=== PATIENT | female | born 1985 | race Caucasian/White ===

== ENCOUNTER 2016-10-15 22:58 | Emergency (ER) | payer OTHER ==
[2016-10-15 23:34] VITALS: TEMP 98.2
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
[2016-10-15] MEDS ORDERED: HYDROCODONE/APAP 5/325 TAB PO ONE (23:58)
[2016-10-16 00:35] VITALS: BP 140/82; PULSE 100; RESP 18; O2SAT 95
== END 2016-10-16 00:32 | disposition home or self-care (01) ==
DX: S93.401A Sprain of unspecified ligament of right ankle, initial encounter (principal); V49.49XA Driver injured in collision with other motor vehicles in traffic accident, initial encounter; Y92.410 Unspecified street and highway as the place of occurrence of the external cause
CPT/HCPCS: L4386

== ENCOUNTER → 2016-10-21 | Outpatient (CLI) | payer OTHER | LOC: BMCIMAGING 09:04 | PROVIDERS: ATTEND Podiatrist Foot & Ankle Surgery | DX: M79.671 Pain in right foot (principal) ==

== ENCOUNTER → 2016-11-11 | Outpatient (CLI) | payer OTHER | LOC: BMCIMAGING 08:59 | PROVIDERS: ATTEND Podiatrist Foot & Ankle Surgery | DX: M25.571 Pain in right ankle and joints of right foot (principal) ==

== ENCOUNTER 2017-07-20 02:05 | Emergency (ER) | payer OTHER ==
[2017-07-20 02:12] VITALS: RESP 20; TEMP 98.6
[2017-07-20] MEDS ORDERED: NS 1,000 ML IV ONE (02:41)
--- NOTE | 2017-07-20 02:42 | EDPHY ---
H & P Stated Complaint: passed out at work, n/V/D yesterday Time Seen by Provider: 07/20/17 02:20 HPI/ROS: Chief Complaint: Syncope HPI: 32-year-old woman had a syncopal event while at work this morning. Patient states that 2 days ago she had 12 hr of nausea vomiting and diarrhea. She did not go to work at night. Yesterday during the day she was feeling better was able to eat and drink. She went to work this morning. She was feeling fine, she was caring some boxes. She started feeling lightheaded and her vision became dark. Coworkers found her passed out on the floor. She is complaining some mild tightness in her chest. No palpitations. No longer having any nausea or vomiting. No shortness of breath. No leg pain or swelling. Does not have a history of syncope in the past. Does have a history of mitral valve prolapse and tachycardia. ROS: 10 point Review of Systems is negative except as noted in the HPI. PMH: Mitral valve prolapse, migraine headaches Social History: Positive smoking, occasional alcohol, occasional CBD Family History: No family history of AL or sudden cardiac Physical Exam: Gen: Awake, Alert, No Distress HEENT: Nose: no rhinorrhea Eyes: PERRLA, EOMI Mouth: Dry mucous membranes Neck: Supple, no JVD Chest: nontender, lungs clear to auscultation Heart: S1, S2 normal, no murmur Abd: Soft, non-tender, no guarding Back: no CVA tenderness, no midline tenderness Ext: no edema, non-tender Skin: no rash Neuro: CN II-XII intact, Sensation grossly intact, Strength 5/5 in bilateral upper and lower extremities - Personal History LMP (Females 10-55): IUD In Place Current Tetanus Diphtheria and Acellular Pertussis (TDAP): Yes - Medical/Surgical History Hx Asthma: No Hx Chronic Respiratory Disease: No Hx Diabetes: No Hx Cardiac Disease: Yes Hx Renal Disease: No Hx Cirrhosis: No Hx Alcoholism: No Hx HIV/AIDS: No Hx Splenectomy or Spleen Trauma: No Other PMH: mitral valve prolapse, sinus tachycardia, atrial tachycardia - Social History Smoking Status: Light smoker Constitutional: Initial Vital Signs Temperature (C) 37 C 07/20/17 02:09 Heart Rate 107 H 07/20/17 02:09 Respiratory Rate 20 07/20/17 02:09 Blood Pressure 126/80 H 07/20/17 02:09 O2 Sat (%) 100 07/20/17 02:09 O2 Delivery Mode Room Air Allergies/Adverse Reactions: No Known Allergies Allergy (Unverified 07/20/17 02:09) Home Medications: Medication Instructions Recorded NK [No Known Home Meds] 07/20/17 Medical Decision Making - Diagnostics EKG Interpretation: ECG time 2:44 a.m., sinus rhythm with a rate of 80, normal axis, normal intervals, no acute ST or T-wave changes. Impression: Normal ECG. ED Course/Re-evaluation: 32-year-old woman with a syncopal episode likely related to her dehydration from her gastroenteritis. Her ECG is normal. Laboratory evaluations are negative. She is not . She has been given a L of fluid. She is feeling improved. Will discharge with follow-up with primary care physician, return for worsening. - Data Points Laboratory Results: Laboratory Results 07/20/17 02:30 07/20/17 02:30 07/20/17 07/20/17 07/20/17 02:30 02:30 02:30 WBC 10.89 10^3/uL H 10^3/uL (3.80-9.50) RBC 5.19 10^6/uL 10^6/uL (4.18-5.33) Hgb 15.6 g/dL g/dL (12.6-16.3) Hct 46.4 % % (38.0-47.0) MCV 89.4 fL fL (81.5-99.8) MCH 30.1 pg pg (27.9-34.1) MCHC 33.6 g/dL g/dL (32.4-36.7) RDW 13.4 % % (11.5-15.2) Plt Count 201 10^3/uL 10^3/uL (150-400) MPV 9.9 fL fL (8.7-11.7) Neut % (Auto) 63.3 % % (39.3-74.2) Lymph % (Auto) 23.2 % % (15.0-45.0) [place] % (Auto) 8.7 % % (4.5-13.0) Eos % (Auto) 3.6 % % (0.6-7.6) Baso % (Auto) 0.6 % % (0.3-1.7) Nucleat RBC Rel Count 0.0 % % (0.0-0.2) Absolute Neuts (auto) 6.90 10^3/uL H 10^3/uL (1.70-6.50) Absolute Lymphs (auto) 2.53 10^3/uL 10^3/uL (1.00-3.00) Absolute Monos (auto) 0.95 10^3/uL H 10^3/uL (0.30-0.80) Absolute Eos (auto) 0.39 10^3/uL 10^3/uL (0.03-0.40) Absolute Basos (auto) 0.06 10^3/uL 10^3/uL (0.02-0.10) Absolute Nucleated RBC 0.00 10^3/uL 10^3/uL (0-0.01) Immature Gran % 0.6 % % (0.0-1.1) Immature Gran # 0.06 10^3/uL 10^3/uL (0.00-0.10) Sodium 143 mEq/L mEq/L (135-145) Potassium 3.8 mEq/L mEq/L (3.5-5.2) Chloride 107 mEq/L mEq/L (97-110) Carbon Dioxide 19 mEq/l L mEq/l (22-31) Anion Gap 17 mEq/L H mEq/L (8-16) BUN 18 mg/dL mg/dL (7-23) Creatinine 0.7 mg/dL mg/dL (0.6-1.0) Estimated GFR > 60 Glucose 85 mg/dL mg/dL (70-100) Calcium 9.2 mg/dL mg/dL (8.5-10.4) Beta HCG, Qual NEGATIVE Medications Given: Discontinued Medications Sodium Chloride (Ns) 1,000 mls @ 0 mls/hr IV ONCE ONE; Wide Open PRN Reason: Protocol Stop: 07/20/17 02:42 Last Admin: 07/20/17 02:52 Dose: 1,000 mls Departure - Departure Disposition: Home, Routine, Self-Care Clinical Impression: Dehydration, Syncope Condition: Good Instructions: Dehydration (ED), Syncope (ED) Additional Instructions: Make sure to drink plenty of fluids. Follow up with primary care physician in 2-3 days for further evaluation. Return to the emergency department for further fainting, lightheadedness, fevers , chills, chest pain, nausea, vomiting, or any other concerns. Referrals: Satish Juarez MD [Medical Doctor] - As per Instructions
[2017-07-20 02:45] LABS: PLATELET COUNT 201 10^3/uL (150-400)
--- NOTE | 2017-07-20 02:46 | CPEKG ---
Heart Rate: 80 RR Interval: 750 P-R Interval: 152 QRSD Interval: 86 QT Interval: 364 QTC Interval: 420 P [place]: -5 QRS [place]: 62 T Wave [place]: 37 EKG Severity - NORMAL ECG - EKG Impression: SINUS RHYTHM Electronically Signed By: Jatinder Hay 20-Jul-2017 03:03:05
[2017-07-20] MEDS ORDERED: ONDANSETRON 4 MG/2 ML VIAL ONE (03:02)
[2017-07-20] MEDS ORDERED: ONDANSETRON 4 MG/2 ML VIAL IVP ONE (03:02)
[2017-07-20 03:43] VITALS: BP 107/73; PULSE 78; O2SAT 99
== END 2017-07-20 03:47 | disposition home or self-care (01) ==
DX: R55 Syncope and collapse (principal); E86.0 Dehydration; E86.9 Volume depletion, unspecified; F17.200 Nicotine dependence, unspecified, uncomplicated
CPT/HCPCS: 96374; J2405

== ENCOUNTER → 2017-10-31 | Outpatient (CLI) | payer BC, OTHER | LOC: BMCIMAGING 11:53 | PROVIDERS: ATTEND Family Medicine | DX: J98.4 Other disorders of lung (principal) ==

== ENCOUNTER 2018-03-01 08:39 | Observation (INO) | payer OTHER ==
--- NOTE | 2018-03-01 09:10 | EDPHY ---
General - History Smoking Status: Former smoker Time Seen by Provider: 03/01/18 09:00 Narrative: PHYSICIAN DOCUMENTATION: The patient was evaluated and managed by the Physician Sole Skiver and myself. I have reviewed the chart and agree with the findings and plan of care as documented. In addition, I examined the patient myself at 1010. History confirmed as cough and wheezing. Physical findings as follows: Bilateral expiratory wheezing, prolonged expiratory phase, symmetric lung sounds. Patient has most likely URI with bronchitis and bronchospasm. I think pulmonary embolism would be less likely. Plan for steroids which are discussed and consented, multiple nebulizer treatments, disposition depending on clinical improvement. Discussed with Abhi Huitron [id number]. I am the secondary supervising physician. (Homero Rodriguez) CHIEF COMPLAINT: Cough, weakness, shortness of breath HISTORY OF PRESENT ILLNESS: Patient presents with complaints of cough, weakness, fatigue, shortness of breath and vomiting. She said the cough started 4 days ago. It was mild to moderate. Over the past 2 days however, it has become significantly worse. She reports frequent episodes of posttussive emesis. He has a productive cough. She has been subjectively febrile. She reports feeling very fatigued and weak. She has had some nausea. She has no chest pain at rest. No pain with exertion. She has no abdominal pain. No neck pain or stiffness. No headache. She does have a very sore throat with some sinus congestion. No rash. She went to urgent care prior to arrival, but they sent her here after breathing treatment because her oxygenation was 88% on room air. No other associated complaints or modifying factors. REVIEW OF SYSTEMS: 10 systems were reviewed and negative with the exception of the elements mentioned in the history of present illness. PCP: None. SPECIALISTS: Dr. Jules PAST MEDICAL HISTORY: Mitral valve prolapse, sinus tachycardia, atrial tachycardia PAST SURGICAL HISTORY: Bilateral salpingo acted me January 20, 2018 SOCIAL HISTORY: "Occasional"smoker. Lives independently. FAMILY HISTORY: Noncontributory EXAMINATION: General Appearance: Alert, no distress. Ill appearing but nontoxic. Conversing in full sentences. Head: normocephalic, atraumatic Eyes: Pupils equal and round, no conjunctival pallor or injection ENT, Mouth: Mucous membranes moist. Postnasal drip. Airway patent Neck: Normal inspection, supple, non-tender. No meningismus or rigidity. Respiratory: Harsh, sonorous rhonchi throughout. Expiratory wheezing throughout. Mild consolidation. No retractions or distress. Cardiovascular: Tachycardic rate. Regular rhythm. Grade 1 systolic murmur. Gastrointestinal: Abdomen is soft and nontender no tympany rigidity Back: non-tender, no bony abnormalities Neurological: A&O, nonfocal, normal gait Skin: Warm and dry, no rash Extremities: Nontender, no pedal edema Psychiatric: Mood and affect normal DIFFERENTIAL DIAGNOSES: Including but not limited to sepsis, community-acquired pneumonia, bronchitis, influenza, PE, pleural effusion MDM: 9:10 a.m. Cough with body aches, weakness, post-tussive emesis and shortness of breath over the past 4 days. She denies any chest pain at rest or with exertion. Her examination suggest likely pneumonia versus bronchitis. She is tachycardic, respiratory rate is 20, she was hypoxemic and she does have a mildly elevated temperature but not quite febrile. Due to this I discussed with Dr. Homero Rodriguez immediately, and we will obtain blood cultures and lactic acid 9:50 a.m. Chest x-ray has been reviewed with Dr. Rodriguez. No evidence of pneumonia as read by us. I have ordered D-dimer as she is tachycardic with surgery early January. I feel that PE is unlikely but we will obtain D-dimer. Continue with nebulizer treatments. Laboratory studies thus far pending with a negative lactic acid. 10:15 a.m. X-ray unremarkable for pneumonia. D-dimer is negative. Dr. Rodriguez has evaluated the patient and agrees with is a likelihood of bronchitis. We will as IV steroid and continue bronchodilator treatments and re-evaluate. 11:05 a.m. Patient re-evaluated. She remains hypoxic on room air, 86-88%. She is still coughing forcefully. Her heart rate remains sinus tachycardia. She has no improvement in her symptoms despite multiple medications. I do feel she will need admission to the hospital. 11:[address] Rodriguez has discussed the case with Elvia Moe NP. Patient be admitted to the hospital for further care patient in stable condition. SUPERVISION: Patient was independently examined, but I discussed the case with my secondary supervising physician Dr. Rodriguez CONSULTATION: Admission (Favio Lucas) - Diagnostics Imaging Results: Imaging Impressions Chest X-Ray 03/01/18 09:12 Impression: Probable bronchitis/airways disease without evidence of pneumonia. - Objective Vital Signs: Initial Vital Signs Temperature (C) 99.7 F 03/01/18 08:41 Heart Rate 126 H 03/01/18 08:41 Respiratory Rate 18 03/01/18 08:41 Blood Pressure 103/81 H 03/01/18 08:41 O2 Sat (%) 89 L 03/01/18 08:41 O2 Delivery Mode Nasal Cannula O2 (L/minute) 2 Allergies/Adverse Reactions: No Known Allergies Allergy (Verified 03/01/18 11:39) Home Medications: Medication Instructions Recorded Albuterol [Proventil Inhaler HFA 1 - 2 puffs IH DAILY PRN 03/01/18 (*)] Albuterol [Proventil Neb] 3 ml IH QID PRN 03/01/18 Laboratory Results: Laboratory Results 03/01/18 09:40 03/01/18 09:40 03/01/18 03/01/18 03/01/18 09:40 09:40 09:40 WBC 14.63 10^3/uL H 10^3/uL (3.80-9.50) RBC 5.13 10^6/uL 10^6/uL (4.18-5.33) Hgb 15.3 g/dL g/dL (12.6-16.3) Hct 45.4 % % (38.0-47.0) MCV 88.5 fL fL (81.5-99.8) MCH 29.8 pg pg (27.9-34.1) MCHC 33.7 g/dL g/dL (32.4-36.7) RDW 13.1 % % (11.5-15.2) Plt Count 242 10^3/uL 10^3/uL (150-400) MPV 10.5 fL fL (8.7-11.7) Neut % (Auto) 79.4 % H % (39.3-74.2) Lymph % (Auto) 12.0 % L % (15.0-45.0) [place] % (Auto) 7.2 % % (4.5-13.0) Eos % (Auto) 0.4 % L % (0.6-7.6) Baso % (Auto) 0.5 % % (0.3-1.7) Nucleat RBC Rel Count 0.0 % % (0.0-0.2) Absolute Neuts (auto) 11.61 10^3/uL H 10^3/uL (1.70-6.50) Absolute Lymphs (auto) 1.75 10^3/uL 10^3/uL (1.00-3.00) Absolute Monos (auto) 1.06 10^3/uL H 10^3/uL (0.30-0.80) Absolute Eos (auto) 0.06 10^3/uL 10^3/uL (0.03-0.40) Absolute Basos (auto) 0.08 10^3/uL 10^3/uL (0.02-0.10) Absolute Nucleated RBC 0.00 10^3/uL 10^3/uL (0-0.01) Immature Gran % 0.5 % % (0.0-1.1) Immature Gran # 0.07 10^3/uL 10^3/uL (0.00-0.10) PT 12.9 SEC SEC (12.0-15.0) INR 0.95 (0.83-1.16) APTT 29.2 SEC SEC (23.0-38.0) D-Dimer < 0.27 ug/mLFEU ug/mLFEU (0.00-0.50) VBG Lactic Acid Sodium Potassium Chloride Carbon Dioxide Anion Gap BUN Creatinine Estimated GFR Glucose Calcium Total Bilirubin Conjugated Bilirubin Unconjugated Bilirubin AST ALT Alkaline Phosphatase Total Protein Albumin Lipase Specimen Hemolysis Nasal Influenza A PCR NEGATIVE FOR FLU A (NEGATIVE) Nasal Influenza B PCR NEGATIVE FOR FLU B (NEGATIVE) 03/01/18 03/01/18 09:40 09:40 WBC RBC Hgb Hct MCV MCH MCHC RDW Plt Count MPV Neut % (Auto) Lymph % (Auto) [place] % (Auto) Eos % (Auto) Baso % (Auto) Nucleat RBC Rel Count Absolute Neuts (auto) Absolute Lymphs (auto) Absolute Monos (auto) Absolute Eos (auto) Absolute Basos (auto) Absolute Nucleated RBC Immature Gran % Immature Gran # PT INR APTT D-Dimer VBG Lactic Acid 1.7 mmol/L mmol/L (0.7-2.1) Sodium 141 mEq/L mEq/L (135-145) Potassium 4.7 mEq/L mEq/L (3.3-5.0) Chloride 106 mEq/L mEq/L (97-110) Carbon Dioxide 24 mEq/l mEq/l (22-31) Anion Gap 11 mEq/L mEq/L (8-16) BUN 10 mg/dL mg/dL (7-23) Creatinine 0.5 mg/dL L mg/dL (0.6-1.0) Estimated GFR > 60 Glucose 102 mg/dL H mg/dL (70-100) Calcium 9.5 mg/dL mg/dL (8.5-10.4) Total Bilirubin 0.7 mg/dL mg/dL (0.1-1.4) Conjugated Bilirubin 0.2 mg/dL mg/dL (0.0-0.5) Unconjugated Bilirubin 0.5 mg/dL mg/dL (0.0-1.1) AST 41 IU/L IU/L (14-46) ALT 40 IU/L IU/L (9-52) Alkaline Phosphatase 72 IU/L IU/L (38-126) Total Protein 7.7 g/dL g/dL (6.3-8.2) Albumin 4.5 g/dL g/dL (3.5-5.0) Lipase 48 IU/L IU/L (23-300) Specimen Hemolysis 109 Nasal Influenza A PCR Nasal Influenza B PCR Medications Given: Albuterol/Ipratropium (Duoneb) 3 ml IH Q6HRS LINDA Stop: 08/28/18 17:59 Last Admin: 03/01/18 15:54 Dose: 3 ml Benzonatate (Tessalon Pearles) 200 mg PO TID PRN PRN Reason: Cough, Mild Stop: 08/28/18 16:56 Last Admin: 03/01/18 17:01 Dose: 200 mg Guaifenesin/Dextromethorphan (Robitussin Dm Oral Liquid) 10 ml PO Q4HRS PRN PRN Reason: Cough, Moderate Stop: 08/28/18 13:29 Last Admin: 03/01/18 14:16 Dose: 10 ml Discontinued Medications Hydrocodone Bitart/Acetaminophen ([place] 5/325) 1 tab PO EDNOW ONE Stop: 03/01/18 09:13 Last Admin: 03/01/18 09:48 Dose: 1 tab Albuterol (Proventil Neb) 3 ml IH EDNOW ONE Stop: 03/01/18 10:16 Last Admin: 03/01/18 10:28 Dose: 3 ml Albuterol (Proventil Neb) 3 ml IH EDNOW ONE Stop: 03/01/18 10:19 Last Admin: 03/01/18 10:44 Dose: 3 ml Albuterol/Ipratropium (Duoneb) 3 ml IH EDNOW ONE Stop: 03/01/18 09:56 Last Admin: 03/01/18 09:59 Dose: 3 ml Sodium Chloride (Ns) 1,000 mls @ 0 mls/hr IV EDNOW ONE; Wide Open PRN Reason: Protocol Stop: 03/01/18 09:13 Last Admin: 03/01/18 09:46 Dose: 1,000 mls Sodium Chloride (Ns) 1,000 mls @ 0 mls/hr IV EDNOW ONE; Wide Open PRN Reason: Protocol Stop: 03/01/18 11:18 Last Admin: 03/01/18 11:29 Dose: 1,000 mls Lorazepam (Ativan Injection) 1 mg IVP EDNOW ONE Stop: 03/01/18 09:40 Last Admin: 03/01/18 09:47 Dose: 1 mg Methylprednisolone Sodium Succinate (Solu-Medrol) 125 mg IVP EDNOW ONE Stop: 03/01/18 10:16 Last Admin: 03/01/18 10:25 Dose: 125 mg Departure - Departure Disposition: [facility] Acute Clinical Impression: Hypoxemia Acute bronchitis Qualifiers: Bronchitis organism: unspecified organism Qualified Code(s): J20.9 - Acute bronchitis, unspecified Condition: Fair
[2018-03-01] MEDS ORDERED: HYDROCODONE/APAP 5/325 TAB PO ONE (09:12)
[2018-03-01] MEDS ORDERED: NS 1,000 ML IV ONE ×2 (09:12→11:17)
[2018-03-01] MEDS ORDERED: LORazepam 2 MG/ML INJ IVP ONE (09:39)
[2018-03-01] MEDS ORDERED: IPRATROPIUM/ALBUTEROL 3 ML DEYVIAL IH ONE (09:55)
[2018-03-01 09:57] LABS: PLATELET COUNT 242 10^3/uL (150-400)
[2018-03-01 10:04] LABS: INR 0.95 (0.83-1.16); PROTIME(PATIENT) 12.9 SEC (12.0-15.0)
[2018-03-01] MEDS ORDERED: ALBUTEROL 3 ML DEYVIAL IH ONE ×2 (10:15→10:18)
[2018-03-01] MEDS ORDERED: methylPREDNISolone SOD SUCC 125 MG/2 ML VIAL IVP ONE (10:15)
[2018-03-01] MEDS ORDERED: ONDANSETRON 4 MG/2 ML VIAL IVP PRN (12:03)
[2018-03-01] MEDS ORDERED: ONDANSETRON DISINTEGRATING 4 MG TAB PO PRN (12:03)
[2018-03-01] MEDS: GUAIFENESIN/DM 10 ML UDCUP PO PRN ×3 (14:16→22:17)
[2018-03-01] MEDS: IPRATROPIUM/ALBUTEROL 3 ML DEYVIAL IH SCH ×2 (15:54→22:06)
[2018-03-01] MEDS ORDERED: IPRATROPIUM/ALBUTEROL 3 ML DEYVIAL IH PRN (16:25)
--- NOTE | 2018-03-01 16:26 | PDGENHP ---
History and Physical - Chief Complaint SOB, Wheezing, Cough - History of Present Illness Vonda Pickens is a 32 yo F with a PMHx of Asthma who presents with 4 day hx of cough and shortness of breath which have worsened over the past 2 days. She is having severe coughing fits that result in posttussive emesis. She reports that cough is productive and associated with fevers, fatigue, and generalized weakness. She does reports a sore throat with some sinus congestion. She was taking Dayquil and Nyquil for the past few days without significnat relief. She has also been using her Albuterol inhaler which she usually only uses monthly multiple times a day. She went to urgent care today, but they sent her to the ED because her oxygenation was 88% on room air. History Information - Allergies/Home Medication List Allergies/Adverse Reactions: No Known Allergies Allergy (Verified 03/01/18 11:39) Home Medications: Albuterol [Proventil Inhaler HFA (*)] 1 - 2 puffs IH DAILY PRN 03/01/18 [Last Taken Unknown] Albuterol [Proventil Neb] 3 ml IH QID PRN 03/01/18 [Last Taken Unknown] I have personally reviewed and updated: family history, medical history, social history, surgical history - Past Medical History asthma - Surgical History Additional surgical history: Recent fallopian tube surgery - Family History Negative for: lung disease - Social History Smoking Status: Former smoker Tobacco Use: Cigarettes Review of Systems Review of Systems: ROS: 10pt was reviewed & negative except for what was stated in HPI & below Physical Exam Physical Exam: Temp Pulse Resp BP Pulse Ox 36.9 C 120 H 18 126/84 H 94 03/01/18 15:46 03/01/18 15:56 03/01/18 15:56 03/01/18 15:46 03/01/18 15:56 O2 (L/minute) 2 Constitutional: uncomfortable Eyes: PERRL Ears, Nose, Mouth, Throat: moist mucous membranes Cardiovascular: tachycardia Respiratory: reduced air movement, expiratory wheeze, bronchial breath sounds Gastrointestinal: normoactive bowel sounds, soft, non-tender abdomen Genitourinary: No nascimento in urethra Skin: warm Musculoskeletal: full muscle strength Neurologic: AAOx3 Psychiatric: interacting appropriately Lymph, Heme, Immunologic: No ecchymoses, No petechiae Lab Data & Imaging Review 03/01/18 09:40 03/01/18 09:40 WBC 14.63 10^3/uL (3.80-9.50) H 03/01/18 09:40 RBC 5.13 10^6/uL (4.18-5.33) 03/01/18 09:40 Hgb 15.3 g/dL (12.6-16.3) 03/01/18 09:40 Hct 45.4 % (38.0-47.0) 03/01/18 09:40 MCV 88.5 fL (81.5-99.8) 03/01/18 09:40 MCH 29.8 pg (27.9-34.1) 03/01/18 09:40 MCHC 33.7 g/dL (32.4-36.7) 03/01/18 09:40 RDW 13.1 % (11.5-15.2) 03/01/18 09:40 Plt Count 242 10^3/uL (150-400) 03/01/18 09:40 MPV 10.5 fL (8.7-11.7) 03/01/18 09:40 Neut % (Auto) 79.4 % (39.3-74.2) H 03/01/18 09:40 Lymph % (Auto) 12.0 % (15.0-45.0) L 03/01/18 09:40 Fisher % (Auto) 7.2 % (4.5-13.0) 03/01/18 09:40 Eos % (Auto) 0.4 % (0.6-7.6) L 03/01/18 09:40 Baso % (Auto) 0.5 % (0.3-1.7) 03/01/18 09:40 Nucleat RBC Rel Count 0.0 % (0.0-0.2) 03/01/18 09:40 Absolute Neuts (auto) 11.61 10^3/uL (1.70-6.50) H 03/01/18 09:40 Absolute Lymphs (auto) 1.75 10^3/uL (1.00-3.00) 03/01/18 09:40 Absolute Monos (auto) 1.06 10^3/uL (0.30-0.80) H 03/01/18 09:40 Absolute Eos (auto) 0.06 10^3/uL (0.03-0.40) 03/01/18 09:40 Absolute Basos (auto) 0.08 10^3/uL (0.02-0.10) 03/01/18 09:40 Absolute Nucleated RBC 0.00 10^3/uL (0-0.01) 03/01/18 09:40 Immature Gran % 0.5 % (0.0-1.1) 03/01/18 09:40 Immature Gran # 0.07 10^3/uL (0.00-0.10) 03/01/18 09:40 PT 12.9 SEC (12.0-15.0) 03/01/18 09:40 INR 0.95 (0.83-1.16) 03/01/18 09:40 APTT 29.2 SEC (23.0-38.0) 03/01/18 09:40 D-Dimer < 0.27 ug/mLFEU (0.00-0.50) 03/01/18 09:40 VBG Lactic Acid 1.7 mmol/L (0.7-2.1) 03/01/18 09:40 Sodium 141 mEq/L (135-145) 03/01/18 09:40 Potassium 4.7 mEq/L (3.3-5.0) 03/01/18 09:40 Chloride 106 mEq/L (97-110) 03/01/18 09:40 Carbon Dioxide 24 mEq/l (22-31) 03/01/18 09:40 Anion Gap 11 mEq/L (8-16) 03/01/18 09:40 BUN 10 mg/dL (7-23) 03/01/18 09:40 Creatinine 0.5 mg/dL (0.6-1.0) L 03/01/18 09:40 Estimated GFR > 60 03/01/18 09:40 Glucose 102 mg/dL (70-100) H 03/01/18 09:40 Calcium 9.5 mg/dL (8.5-10.4) 03/01/18 09:40 Total Bilirubin 0.7 mg/dL (0.1-1.4) 03/01/18 09:40 Conjugated Bilirubin 0.2 mg/dL (0.0-0.5) 03/01/18 09:40 Unconjugated Bilirubin 0.5 mg/dL (0.0-1.1) 03/01/18 09:40 AST 41 IU/L (14-46) 03/01/18 09:40 ALT 40 IU/L (9-52) 03/01/18 09:40 Alkaline Phosphatase 72 IU/L (38-126) 03/01/18 09:40 Total Protein 7.7 g/dL (6.3-8.2) 03/01/18 09:40 Albumin 4.5 g/dL (3.5-5.0) 03/01/18 09:40 Lipase 48 IU/L (23-300) 03/01/18 09:40 Specimen Hemolysis 109 03/01/18 09:40 Nasal Influenza A PCR NEGATIVE FOR FLU A (NEGATIVE) 03/01/18 09:40 Nasal Influenza B PCR NEGATIVE FOR FLU B (NEGATIVE) 03/01/18 09:40 Visualized and Interpreted Chest x-ray results: Yes Chest X-Ray results: no infiltrate Assessment & Plan Assessment: Asthma Exacerbation - Presents with 4 day hx of cough, SOB, wheezing - Audible wheezing on exam with decreased air movement - 02 sats 90's on 2L NC, wean as tolerated - S/p 125 mg IV Methylprednisilone in ED, will continue 40 mg PO Prednisone for total 5 day course - Ordered Duonebs scheduled and PRN - Patient tachycardic on admission with negative D-dimer, if remains tachy with hypoxia will consider CTA to r/o PE Viral Bronchitis - Reports cough and sore throat - CXR negative for PNA on admission, shows mild diffuse bronchitis - Afebrile on admission, WBC count elevated to 14.6 - Will treat with antitussive medications - Hold off on abx for now, if s/s of infection will start - Flu negative on admission FEN: IVF PRN Ppx: SCDs Diet: Regular Code: FULL Dispo: Admit to Observation, pending clinical course
[2018-03-01] MEDS: BENZONATATE 100 MG CAP PO PRN (17:01)
[2018-03-01] MEDS: LORazepam 1 MG TAB PO PRN (20:15)
[2018-03-02] MEDS: GUAIFENESIN/DM 10 ML UDCUP PO PRN ×2 (05:58→19:36)
[2018-03-02] MEDS: ACETAMINOPHEN 325 MG TAB PO PRN ×3 (06:06→19:36)
[2018-03-02] MEDS: IPRATROPIUM/ALBUTEROL 3 ML DEYVIAL IH SCH ×4 (06:08→22:50)
[2018-03-02] MEDS: predniSONE 20 MG TAB PO SCH (09:22)
[2018-03-02] MEDS: BENZONATATE 100 MG CAP PO PRN (09:37)
--- NOTE | 2018-03-02 12:56 | HOSPPROG ---
Hospitalist Progress Note Assessment/Plan: Asthma Exacerbation - Presents with 4 day hx of cough, SOB, wheezing - Audible wheezing on exam with decreased air movement - 02 sats 90's on 2L NC, wean as tolerated - S/p 125 mg IV Methylprednisilone in ED, will continue 40 mg PO Prednisone for total 5 day course - Ordered Duonebs scheduled and PRN - Patient tachycardic on admission with negative D-dimer, if remains tachy with hypoxia will consider CTA to r/o PE Viral Bronchitis - Reports cough and sore throat - CXR negative for PNA on admission, shows mild diffuse bronchitis - Afebrile on admission, WBC count elevated to 14.6 - Will treat with antitussive medications - Hold off on abx for now, if s/s of infection will start - Flu negative on admission FEN: IVF PRN Ppx: SCDs Diet: Regular Code: FULL Dispo: Pending clinical course, likely d/c tomorrow Subjective: Patient reports continued cough Objective: Vital Signs Temp Pulse Resp BP Pulse Ox 36.6 C 114 H 96 H 113/79 3 L 03/02/18 07:47 03/02/18 11:07 03/02/18 11:07 03/02/18 11:07 03/02/18 11:07 03/01/18 03/02/18 03/03/18 05:59 05:59 05:59 Output Total 2 Balance -2 PT 12.9 SEC (12.0-15.0) 03/01/18 09:40 INR 0.95 (0.83-1.16) 03/01/18 09:40 - Physical Exam Constitutional: uncomfortable Eyes: PERRL Ears, Nose, Mouth, Throat: moist mucous membranes Cardiovascular: tachycardia Respiratory: reduced air movement, expiratory wheeze Gastrointestinal: soft, non-tender abdomen Skin: warm Musculoskeletal: full muscle strength Neurologic: AAOx3 Psychiatric: interacting appropriately ICD10 Worksheet Patient Problems: Problems Problem Status Onset Acute bronchitis Acute Hypoxemia Acute
--- NOTE | 2018-03-02 13:00 | ASMTCASEMG ---
Living Arrangements What is your living Answers: With Other (Not Family) arrangement? Who do you live with? Type Of Residence What kind of residence do Answers: House you live in? Discharge Plan Comments Coordination Status Comments Notes: Pt is a 32 y/o female admitted for chest congestion and a cough. CM spoke to Priscilla bobby/ financial counseling. Priscilla reports that pt has [employer] for insurance. Pt will most likely d/c independent when medically stable. No therapies ordered at this time. CM available for changes. Plan: Independent Date Signed: 03/02/2018 12:58 PM Electronically Signed By:SIOBHAN Donis
[2018-03-02] MEDS: LORazepam 1 MG TAB PO PRN ×2 (13:58→19:36)
[2018-03-03] MEDS: LORazepam 1 MG TAB PO PRN (04:23)
[2018-03-03] MEDS: ACETAMINOPHEN 325 MG TAB PO PRN ×2 (04:23→09:01)
[2018-03-03] MEDS: GUAIFENESIN/DM 10 ML UDCUP PO PRN ×2 (04:23→09:02)
[2018-03-03] MEDS: CEPACOL LOZENGE PO PRN ×2 (04:29→04:30)
[2018-03-03] MEDS: IPRATROPIUM/ALBUTEROL 3 ML DEYVIAL IH SCH (05:33)
[2018-03-03] MEDS: predniSONE 20 MG TAB PO SCH (09:04)
--- NOTE | 2018-03-03 09:31 | PDDCSUM ---
Discharge Summary Discharge Summary: The pt is a 32 yo female with long standing Asthma who is from [place]. She is a tobacco smoker. She was admitted with Asthma Exacerbation and viral bronchitis. She is doing better and now back on RA. She will be continued on steroids with short taper. She should use her albuterol inhaler as needed. She has been instructed to quit smoking tobacco. She does not appear to have any allergic component. She did not have bacterial pneumonia and CXR was unremarkable. She is ready for discharge. DDX: Asthma-E Viral Bronchitis Exam: NAD AAOX3 RRR DECREASED LS, EXP WHEEZE, NORMAL WOB S/NT/ND NO LE EDEMA SKIN SOFT MEDS: SEE MED REC FU: WITH PCP IN 1-2 WEEKS. SHE WILL CALL [facility] TOTAL TIME SPENT ON D/C IS 35 MINS
[2018-03-03 09:37] VITALS: BP 122/81
== END 2018-03-03 10:22 | disposition home or self-care (01) ==
LOC: F3E 12:21
PROVIDERS: ADMIT Internal Medicine; ATTEND Internal Medicine
DX: J20.9 Acute bronchitis, unspecified (principal); Z87.891 Personal history of nicotine dependence; I34.1 Nonrheumatic mitral (valve) prolapse
CPT/HCPCS: 71045; 96361; 96374; 96375; 99285; G0378; J2060; J2930; J7512; J7613

== ENCOUNTER → 2018-05-19 | Outpatient (CLI) | payer OTHER ==
[~2018-05-19] MED LIST: IOPAMIDOL (ISOVUE 370) 100 ML BTL IV ONE
== END ==
LOC: FIMAGING 07:54
PROVIDERS: ATTEND Psychiatry & Neurology Neurology
DX: G44.53 Primary thunderclap headache (principal); R93.0 Abnormal findings on diagnostic imaging of skull and head, not elsewhere classified; Z82.49 Family history of ischemic heart disease and other diseases of the circulatory system
CPT/HCPCS: Q9967

== ENCOUNTER → 2018-06-04 | Outpatient (CLI) | payer OTHER ==
[~2018-06-04] MED LIST changes: +GADOBUTROL 10 ML VIAL IVP ONE; -IOPAMIDOL (ISOVUE 370) 100 ML BTL IV ONE
== END ==
LOC: FIMAGING 06:47
PROVIDERS: ATTEND Psychiatry & Neurology Neurology
DX: G43.909 Migraine, unspecified, not intractable, without status migrainosus (principal); R93.0 Abnormal findings on diagnostic imaging of skull and head, not elsewhere classified
CPT/HCPCS: A9585

== ENCOUNTER → 2018-10-25 | Outpatient (CLI) | payer BC | LOC: BMCIMAGING 16:50 | PROVIDERS: ATTEND Family Medicine | DX: M20.11 Hallux valgus (acquired), right foot (principal) ==